=== PATIENT | male | born 1985 | race Caucasian/White ===

== ENCOUNTER → 2019-02-03 | Outpatient (CLI) | payer BC, OTHER | LOC: CAT 15:25 | DX: J01.80 Other acute sinusitis (principal); J34.2 Deviated nasal septum; J34.89 Other specified disorders of nose and nasal sinuses ==

== ENCOUNTER → 2021-08-19 | Outpatient (CLI) | payer BC, OTHER | LOC: ULTRA 14:18 | DX: N50.812 Left testicular pain (principal); N43.3 Hydrocele, unspecified ==